=== PATIENT | female | born 1960 | race Caucasian/White ===

== ENCOUNTER 2018-03-25 13:32 | Outpatient (CLI) | payer MEDICARE | END 2018-03-25 13:33 | disposition home or self-care (01) | LOC: LAB.F 13:32 | PROVIDERS: ATTEND Internal Medicine | DX: Z53.9 Procedure and treatment not carried out, unspecified reason (principal) ==

== ENCOUNTER 2018-03-29 09:05 | Outpatient (CLI) | payer MEDICARE ==
[2018-03-29 18:20] LABS: HB2 TOTAL 14.3 g/dL; HEMOGLOBIN A1C 0.61 g/dL; HEMOGLOBIN A1C % 6.1 % (4.6-6.2)
[2018-03-29 19:07] LABS: BUN - BLOOD UREA NITROGEN 23 mg/dL (6-20); CALCIUM 9.1 mg/dL (8.5-10.3); CARBON DIOXIDE - CO2 29 mmol/L (21-32); CHLORIDE 104 mmol/L (101-111); CHOL/HDL RATIO 5.5 (<4.4); CHOLESTEROL 262 mg/dL; CREATININE 0.7 mg/dL (0.4-1.0); GFR - MDRD 87 (>89); GLUCOSE 124 mg/dL (70-100); HDL CHOLESTEROL 48 mg/dL; LDL CHOLESTEROL,CALCULATED 183 mg/dL; LDL/HDL RATIO 3.8 (<4.4); SODIUM 138 mmol/L (135-145); VLDL CHOLESTEROL 31 mg/dL
== END 2018-03-29 09:06 | disposition home or self-care (01) ==
LOC: LAB.F 09:05
PROVIDERS: ATTEND Internal Medicine
DX: E11.9 Type 2 diabetes mellitus without complications (principal)
CPT/HCPCS: 36415; 80048; 80061; 82043; 83036; 83721

== ENCOUNTER 2018-04-23 16:11 | Outpatient (CLI) | payer MEDICARE ==
--- NOTE | 2018-04-24 08:25 | XRAY Report ---
Reason: PAIN L FOREFOOT Procedure Date: 04/23/2018 Accession Number: [id number] / [id number] Procedure: XR - Foot 3 View LT CPT Code: FULL RESULT: EXAM: LEFT FOOT RADIOGRAPHY EXAM DATE: 04/23/2018 04:43 PM. CLINICAL HISTORY: PAIN L FOREFOOT. COMPARISON: None. TECHNIQUE: 3 views. FINDINGS: Bones: No acute fractures or bone lesions. Slight irregularity of the distal fifth metatarsal, possibly from remote injury. Joints: Mild narrowing of the interphalangeal joints, compatible with mild osteoarthritis. Soft Tissues: Normal. No soft tissue swelling. IMPRESSION: 1. No acute abnormality. 2. Mild osteoarthritis of the interphalangeal joints. [facility]
== END 2018-04-23 16:12 | disposition home or self-care (01) ==
LOC: DI 16:11
PROVIDERS: ATTEND Podiatrist
DX: M19.072 Primary osteoarthritis, left ankle and foot (principal)